=== PATIENT | female | born 1935 | race Caucasian/White ===

== ENCOUNTER 2018-11-12 12:46 | Emergency (ER) | payer MEDICARE ==
[2018-11-12 12:53] VITALS: RESP 18; TEMP 97.9
--- NOTE | 2018-11-12 14:31 | ED ---
General Adult HPI - General Chief complaint: Head Injury Stated complaint: Fall Time Seen by Provider: 11/12/18 13:25 Source: patient, EMS, RN notes reviewed, old records reviewed, Caregiver Mode of arrival: EMS Limitations: no limitations - History of Present Illness Initial comments: Patient is an 83-year-old female who fell stepping up her porch. She says she lost her balance and her knee gave out. She's had a recent left knee replacement surgery. She has had right knee replaced. This is done by Dr. Yates one year ago. Patient also reports that she had her right knee drained yesterday by the PA Camilo. Patient states that she has no other chest pain or dizziness prior to her fall. She had no loss conscious. Patient's daughter provides emergency department with her very concerned about brain bleed. Daughter is UNCLAIMED PROPERTY OFFICER at [employer] [facility]. Patient is alert and oriented, and had no signs of neurological deficit. Patient is on 2 baby aspirin daily. She does state she limited] of motion of her L knee. - Related Data Allergies Allergy/AdvReac Type Severity Reaction Status Date / Time acetaminophen [From Percocet] Allergy Rash/Hives Verified 11/12/18 12:55 clindamycin [From Cleocin] Allergy Rash/Hives Verified 11/12/18 12:55 fentanyl Allergy Rash/Hives Verified 11/12/18 12:55 morphine Allergy Rash/Hives Verified 11/12/18 12:55 oxycodone [From OxyContin] Allergy Rash/Hives Verified 11/12/18 12:55 Penicillins Allergy Rash/Hives Verified 11/12/18 12:55 Sulfa (Sulfonamide Allergy Rash/Hives Verified 11/12/18 12:55 Antibiotics) Review of Systems ROS Statement: Those systems with pertinent positive or pertinent negative responses have been documented in the HPI. ROS Other: All systems not noted in ROS Statement are negative. Past Medical History Past Medical History: COPD, Thyroid Disorder Additional Past Medical History / Comment(s): kidney issues History of Any Multi-Drug Resistant Organisms: None Reported Past Surgical History: Orthopedic Surgery Additional Past Surgical History / Comment(s): Lt knee replacement 09/2018 Past Psychological History: No Psychological Hx Reported Smoking Status: Never smoker Past Alcohol Use History: None Reported Past Drug Use History: None Reported General Exam - General Exam Comments Initial Comments: 83-year-old female. Alert and oriented 3. Limitations: no limitations General appearance: alert, in no apparent distress Head exam: Present: atraumatic, normocephalic, normal inspection, other (Patient has a contusion over the occipital scalp measuring 2 cm.) Eye exam: Present: normal appearance, PERRL, EOMI. Absent: scleral icterus, conjunctival injection, periorbital swelling ENT exam: Present: normal exam, mucous membranes moist Neck exam: Present: normal inspection, other (Patient is in a c-collar) Respiratory exam: Present: normal lung sounds bilaterally. Absent: respiratory distress, wheezes, rales, rhonchi, stridor Cardiovascular Exam: Present: regular rate, normal rhythm, normal heart sounds. Absent: systolic murmur, diastolic murmur, rubs, gallop, clicks GI/Abdominal exam: Present: soft, normal bowel sounds. Absent: distended, tenderness, guarding, rebound, rigid Extremities exam: Present: normal inspection, full ROM, normal capillary refill. Absent: tenderness, pedal edema, joint swelling, calf tenderness Left Upper Leg exam: Absent: swelling Knee exam: Present: tenderness, ecchymosis (over patella tendon, high riding patella). Absent: normal inspection, full ROM Lower Leg exam: Present: normal inspection, full ROM Ankle exam: Present: normal inspection, full ROM Foot/Toe exam: Present: normal inspection, full ROM Neurovascular tendon exam: Present: no vascular compromise Back exam: Present: normal inspection Neurological exam: Present: alert, oriented X3, CN II-XII intact Psychiatric exam: Present: normal affect, normal mood Course Vital Signs 11/12/18 11/12/18 11/12/18 12:49 12:55 15:13 Temperature 97.9 F Pulse Rate 74 84 Respiratory 18 18 Rate Blood Pressure 220/93 203/97 197/83 O2 Sat by Pulse 97 98 Oximetry 11/12/18 16:29 Temperature Pulse Rate 71 Respiratory 18 Rate Blood Pressure 191/80 O2 Sat by Pulse 97 Oximetry Medical Decision Making - Medical Decision Making This Patient is an 83-year-old female present impairment stay after trip and fall. She fell back hitting her head. She right emergency part of the EMS in c-collar with contusion of her scalp. Alert and oriented has no neurological deficits. CT of the brain and C-spine were completed negative for any acute cranial process or fracture. She also has significant left knee pain and unable to ambulate. She had her left knee replacement one month ago by Dr. Yates at [facility]. Patient is x-ray of the knee shows evidence of possible patella fracture with high riding patella. There is also some abrasions over her elbow this x-ray was negative. After discussion with family and they stated they want her transferred to [facility] only to be seen by orthopedic Dr. Yates. After my attending Dr. Aamir Yates was able to contact his brother or Dr. Collin Yates Patient was accepted to be a direct admit. I discussed case with orthopedic physician Asst. Camilo dentist who accepts the admission. The knee immobilizer prior to transfer. - Radiology Data Radiology results: report reviewed No evidence of acute fracture subluxation of the cervical spine. CT of brain shows age-related H affect and chronic small vessel ischemic changes in any acute cranial process seen at this time. Patella jl. Correlate for patella tendon rupture. Difficult to exclude patellar fracture. Elbow x-rays negative for any fracture dislocation. Disposition Clinical Impression: Patellar tendon rupture, Fall, Head contusion Disposition: DC/TRNS INTERMEDIATE CARE FAC Condition: Stable Is patient prescribed a controlled substance at d/c from ED?: No Referrals: Delta Florez MD [Primary Care Provider] - 1-2 days Time of Disposition: 17:08 - Out of Hospital Transfer - Req. Specs Out of Hospital Transfer - Requested Specifics: Other Non-Acute ([facility] direct admit)
--- NOTE | 2018-11-12 15:03 | CT ---
EXAMINATION TYPE: CT brain geovany kidd DATE OF EXAM: 11/12/2018 COMPARISON: None HISTORY: Fall CT DLP: 1353.[address] of the brain was performed. The ventricles, basal cisterns and sulci overlying the cerebral convexities demonstrate mild enlargem ent. There is no evidence for intracranial hemorrhage or sulcal effacement. There is decreased attenuatio n about the periventricular white matter and deep white matter of both cerebral hemispheres, compatib le with chronic small vessel ischemia. No mass effects are seen. If symptoms persist consider MRI. Osseous calvarium is intact. IMPRESSION: 1. Age related atrophic and chronic small vessel ischemic change without acute intracranial process seen at this time. CT Cervical Spine: Unenhanced CT of the cervical spine was performed with bone and soft tissue window settings submitted . Coronal and sagittal reconstruction is obtained. There is normal alignment and prevertebral soft tissues. No evidence for acute cervical fracture . Scattered degenerative disc disease and spondylosis. Biapical scarring. IMPRESSION: 1. No evidence for acute fracture or subluxation of the cervical spine.
[2018-11-12] MEDS ORDERED: cloNIDine HCL 0.2 MG TAB PO STA (15:06)
[2018-11-12] MEDS ORDERED: MORPHINE SULFATE 4 MG/ML SYRINGE IVP STA (15:09)
[2018-11-12] MEDS ORDERED: LABETALOL SYRINGE 5 MG/ML IVP STA ×2 (15:09→16:30)
[2018-11-12] MEDS ORDERED: diphenhydrAMINE 50 MG/ML 1 ML VIAL IVP STA (15:10)
--- NOTE | 2018-11-12 15:55 | XR ---
Right elbow HISTORY: Trauma and pain 3 views of the right elbow Bone mineralization, joint spaces and alignment are maintained. No evident joint effusion. IMPRESSION: No fracture or dislocation.
--- NOTE | 2018-11-12 15:58 | XR ---
Left knee HISTORY: Trauma and pain 3 views of the left knee Bone mineralization is reduced. Patient is status post left knee arthroplasty. There is soft tissue s welling present. The patella is superiorly displaced, small ossific densities are present which may r epresent small chip fracture at the superior margin. Lucency along the proximal tibial metaphysis med ially is not thought likely to represent a fracture. No definite cortical disruption.. There are vasc ular calcifications present. IMPRESSION: Patella jl, correlate for patellar tendon rupture. Difficult to exclude patellar fractu re.
[2018-11-12 18:19] VITALS: BP 185/80; PULSE 66
== END 2018-11-12 19:17 ==
LOC: EC 12:46
DX: S76.112A Strain of left quadriceps muscle, fascia and tendon, initial encounter (principal); S00.03XA Contusion of scalp, initial encounter; Z53.8 Procedure and treatment not carried out for other reasons; Z88.5 Allergy status to narcotic agent; Z88.1 Allergy status to other antibiotic agents; Z88.6 Allergy status to analgesic agent; Z88.8 Allergy status to other drugs, medicaments and biological substances; Z88.0 Allergy status to penicillin; Z88.2 Allergy status to sulfonamides; Z96.652 Presence of left artificial knee joint; W01.0XXA Fall on same level from slipping, tripping and stumbling without subsequent striking against object, initial encounter
CPT/HCPCS: 73080; 73562; 72125; 70450; 99285; 96374; 96375 ×2; 96376; L1830; J2270; J1200